=== PATIENT | male | born 1970 ===

== ENCOUNTER 2017-06-15 06:59 | Day surgery (SDC) | payer OTHER ==
[2017-06-08 13:23] VITALS: BMI 26.6
[2017-06-15] MEDS ORDERED: Propofol 10 mg/ml Inj (20 ML) ONE (10:24)
[2017-06-15] MEDS ORDERED: Sodium Chloride 0.9% 1,000 ML IV SCH (11:00)
[2017-06-15 12:23] VITALS: BP 109/74; PULSE 59; RESP 17; TEMP 97.6; O2SAT 99
== END 2017-06-15 12:15 | disposition home or self-care (01) ==
LOC: ENDO 06:59
PROVIDERS: ATTEND Internal Medicine Gastroenterology
DX: K20.9 Esophagitis, unspecified (principal); K25.9 Gastric ulcer, unspecified as acute or chronic, without hemorrhage or perforation; R68.81 Early satiety; E78.00 Pure hypercholesterolemia, unspecified; R73.03 Prediabetes; K29.50 Unspecified chronic gastritis without bleeding; Z98.52 Vasectomy status; Z79.82 Long term (current) use of aspirin; F17.200 Nicotine dependence, unspecified, uncomplicated; Z82.3 Family history of stroke
CPT/HCPCS: 43239; 88305; 88312; 88342; J2704; J7040 ×2

== ENCOUNTER 2018-05-18 15:03 | Outpatient (CLI) | payer OTHER | END 2018-05-18 15:04 | disposition home or self-care (01) | LOC: RAD 15:03 ==